=== PATIENT | male | born 1935 | race Caucasian/White ===

== ENCOUNTER 2017-06-11 19:28 | Inpatient (IN) | payer MEDICARE, OTHER ==
[2017-06-11 20:18] LABS: Basophils % (A) 0 %; Eosinophils # (A) 0.1 k/uL (0-0.7); Eosinophils % (A) 1 %; HCT 54.4 % (39.0-53.0); HGB 17.2 gm/dL (13.0-17.5); Hypochromasia Slight; Lymphocytes # (A) 0.5 k/uL (1.0-4.8); Lymphocytes % (A) 7 %; MCH 29.2 pg (25.0-35.0); MCHC 31.7 g/dL (31.0-37.0); MCV 92.1 fL (80.0-100.0); Mean Platelet Volume 8.5; Monocytes # (A) 0.4 k/uL (0-1.0); Monocytes % (A) 6 %; Neutrophils # (A) 5.3 k/uL (1.3-7.7); Neutrophils % (A) 84 %; Platelet Count 118 k/uL (150-450); RDW 15.1 % (11.5-15.5); WBC 6.3 k/uL (3.8-10.6)
[2017-06-11 20:28] LABS: Albumin 3.3 g/dL (3.5-5.0); Calcium 8.6 mg/dL (8.4-10.2); Magnesium 2.7 mg/dL (1.6-2.3); Potassium 5.1 mmol/L (3.5-5.1); Total Bilirubin 1.3 mg/dL (0.2-1.3); Total Protein 5.6 g/dL (6.3-8.2)
[2017-06-11 20:32] LABS: INR 1.6 (<1.2); Partial Thromboplastin Time 28.2 sec (22.0-30.0)
--- NOTE | 2017-06-11 20:35 | XR ---
EXAMINATION TYPE: XR chest 1V portable DATE OF EXAM: 06/11/2017 COMPARISON: NONE HISTORY: Short of breath TECHNIQUE: Single frontal view of the chest is obtained. FINDINGS: There is coarsening of interstitial pulmonary markings. Heart size is normal. Thoracic aor ta is atheromatous. There are chest leads. There is slight blunting of right costophrenic angle. IMPRESSION: Small right pleural effusion. Coarse lung markings are nonspecific and could relate to f ibrosis or acute interstitial pneumonia. Mild heart failure is possible.
[2017-06-11 20:41] LABS: Appearance,Urine Clear (Clear); Bilirubin,Urine Negative (Negative); Blood,Urine Negative (Negative); Color,Urine Yellow; Glucose,Urine (UA) Negative (Negative); Ketones,Urine 1+ (Negative); Leukocyte Esterase,Urine Negative (Negative); Nitrite,Urine Negative (Negative); PH, Urine 5.5 (5.0-8.0); Protein,Urine Trace (Negative); Specific Gravity,Urine 1.016 (1.001-1.035); Urobilinogen,Urine <2.0 mg/dL (<2.0)
--- NOTE | 2017-06-11 20:57 | ED ---
Altered Mental Status HPI - General Chief Complaint: Altered Mental Status Stated Complaint: failure to thrive Time Seen by Provider: 06/11/17 19:32 Source: EMS Mode of arrival: EMS Limitations: altered mental status - History of Present Illness Initial Comments: Patient is an 82-year-old man brought by EMS to be evaluate for altered mental status. It is reported that the patient was last seen on June 06 and then when he was checked today he was found lying on the floor in clothing soiled. The patient is not able to provide much in way of history. MD Complaint: altered mental status -: unknown Severity: severe Consistency of Symptoms: unknown Context: COPD - Related Data Home Medications Medication Instructions Recorded Confirmed Unable To Assess [Unable to Assess] 06/11/17 06/11/17 Allergies Allergy/AdvReac Type Severity Reaction Status Date / Time No Known Allergies Allergy Verified 06/11/17 20:23 Review of Systems ROS Statement: Those systems with pertinent positive or pertinent negative responses have been documented in the HPI. ROS Other: All systems not noted in ROS Statement are negative. Limitations: ROS unobtainable due to patients medical condition Cardiovascular: Denies: chest pain Neurological: Denies: headache Past Medical History Past Medical History: Unable to Obtain, COPD Additional Past Medical History / Comment(s): Pt poor historian at this time. History of Any Multi-Drug Resistant Organisms: None Reported Past Surgical History: Unable to Obtain Additional Past Surgical History / Comment(s): Pt poor historian at this time. Past Psychological History: No Psychological Hx Reported Smoking Status: Current every day smoker Past Alcohol Use History: None Reported Past Drug Use History: None Reported General Exam Limitations: altered mental status General appearance: alert, cachectic Head exam: Present: atraumatic, normocephalic Eye exam: Present: normal appearance. Absent: scleral icterus, conjunctival injection ENT exam: Present: mucous membranes dry Neck exam: Present: full ROM. Absent: tenderness Respiratory exam: Present: wheezes. Absent: respiratory distress, rales, rhonchi, stridor Cardiovascular Exam: Present: regular rate, normal rhythm, normal heart sounds. Absent: systolic murmur, diastolic murmur, rubs, gallop GI/Abdominal exam: Present: soft. Absent: tenderness, guarding Extremities exam: Present: normal capillary refill, pedal edema (Mild bilateral ankle edema). Absent: calf tenderness Back exam: Absent: CVA tenderness (R), CVA tenderness (L) Neurological exam: Present: altered, CN II-XII intact, other (Patient GCS 14. Somnolent but arousable. Able to only follow single step commands. Oriented to person). Absent: oriented X3, motor sensory deficit Skin exam: Present: warm, dry, other (Multiple excoriations) Course Vital Signs 06/11/17 06/11/17 06/11/17 20:10 21:39 23:05 Temperature 97.6 F Pulse Rate 98 81 91 Respiratory 18 18 18 Rate Blood Pressure 125/60 118/68 112/66 O2 Sat by Pulse 96 95 96 Oximetry 06/11/17 23:27 Temperature 97.2 F L Pulse Rate Respiratory Rate Blood Pressure O2 Sat by Pulse Oximetry Medical Decision Making - Medical Decision Making Patient is a 82-year-old man brought to emergency department after being found on the floor at his residence. The patient does appear to be extremely dehydrated and will be admitted for further hydration as well as - Lab Data Result diagrams: 06/12/17 01:58 06/12/17 01:58 Lab Results 06/11/17 06/11/17 06/11/17 Range/Units 20:07 20:07 20:07 WBC 6.3 (3.8-10.6) k/uL RBC 5.90 (4.30-5.90) m/uL Hgb 17.2 (13.0-17.5) gm/dL Hct 54.4 H (39.0-53.0) % MCV 92.1 (80.0-100.0) fL MCH 29.2 (25.0-35.0) pg MCHC 31.7 (31.0-37.0) g/dL RDW 15.1 (11.5-15.5) % Plt Count 118 L (150-450) k/uL Neutrophils % 84 % Lymphocytes % 7 % Monocytes % 6 % Eosinophils % 1 % Basophils % 0 % Neutrophils # 5.3 (1.3-7.7) k/uL Lymphocytes # 0.5 L (1.0-4.8) k/uL Monocytes # 0.4 (0-1.0) k/uL Eosinophils # 0.1 (0-0.7) k/uL Basophils # 0.0 (0-0.2) k/uL Hypochromasia Slight PT (9.0-12.0) sec INR (<1.2) APTT (22.0-30.0) sec Sodium 153 H (137-145) mmol/L Potassium 5.1 (3.5-5.1) mmol/L Chloride 113 H (98-107) mmol/L Carbon Dioxide 24 (22-30) mmol/L Anion Gap 16 mmol/L BUN 83 H* (9-20) mg/dL Creatinine 1.40 H (0.66-1.25) mg/dL Est GFR (CKD-EPI)AfAm 53 (>60 ml/min/1.73 sqM) Est GFR (CKD-EPI)NonAf 46 (>60 ml/min/1.73 sqM) Glucose 77 (74-99) mg/dL Plasma Lactic Acid Tomas 1.2 (0.7-2.0) mmol/L Calcium 8.6 (8.4-10.2) mg/dL Magnesium 2.7 H (1.6-2.3) mg/dL Total Bilirubin 1.3 (0.2-1.3) mg/dL AST 71 H (17-59) U/L ALT 54 (21-72) U/L Alkaline Phosphatase 53 (38-126) U/L Troponin I (0.000-0.034) ng/mL Total Protein 5.6 L (6.3-8.2) g/dL Albumin 3.3 L (3.5-5.0) g/dL Urine Color Urine Appearance (Clear) Urine pH (5.0-8.0) Ur Specific [place] (1.001-1.035) Urine Protein (Negative) Urine Glucose (UA) (Negative) Urine Ketones (Negative) Urine Blood (Negative) Urine Nitrite (Negative) Urine Bilirubin (Negative) Urine Urobilinogen (<2.0) mg/dL Ur Leukocyte Esterase (Negative) 06/11/17 06/11/17 06/11/17 Range/Units 20:07 20:07 20:30 WBC (3.8-10.6) k/uL RBC (4.30-5.90) m/uL Hgb (13.0-17.5) gm/dL Hct (39.0-53.0) % MCV (80.0-100.0) fL MCH (25.0-35.0) pg MCHC (31.0-37.0) g/dL RDW (11.5-15.5) % Plt Count (150-450) k/uL Neutrophils % % Lymphocytes % % Monocytes % % Eosinophils % % Basophils % % Neutrophils # (1.3-7.7) k/uL Lymphocytes # (1.0-4.8) k/uL Monocytes # (0-1.0) k/uL Eosinophils # (0-0.7) k/uL Basophils # (0-0.2) k/uL Hypochromasia PT 15.0 H (9.0-12.0) sec INR 1.6 H (<1.2) APTT 28.2 (22.0-30.0) sec Sodium (137-145) mmol/L Potassium (3.5-5.1) mmol/L Chloride (98-107) mmol/L Carbon Dioxide (22-30) mmol/L Anion Gap mmol/L BUN (9-20) mg/dL Creatinine (0.66-1.25) mg/dL Est GFR (CKD-EPI)AfAm (>60 ml/min/1.73 sqM) Est GFR (CKD-EPI)NonAf (>60 ml/min/1.73 sqM) Glucose (74-99) mg/dL Plasma Lactic Acid Tomas (0.7-2.0) mmol/L Calcium (8.4-10.2) mg/dL Magnesium (1.6-2.3) mg/dL Total Bilirubin (0.2-1.3) mg/dL AST (17-59) U/L ALT (21-72) U/L Alkaline Phosphatase (38-126) U/L Troponin I 0.159 H* (0.000-0.034) ng/mL Total Protein (6.3-8.2) g/dL Albumin (3.5-5.0) g/dL Urine Color Yellow Urine Appearance Clear (Clear) Urine pH 5.5 (5.0-8.0) Ur Specific [place] 1.016 (1.001-1.035) Urine Protein Trace H (Negative) Urine Glucose (UA) Negative (Negative) Urine Ketones 1+ H (Negative) Urine Blood Negative (Negative) Urine Nitrite Negative (Negative) Urine Bilirubin Negative (Negative) Urine Urobilinogen <2.0 (<2.0) mg/dL Ur Leukocyte Esterase Negative (Negative) - EKG Data -: EKG Interpreted by Me EKG shows normal: sinus rhythm (Rate approximately 98 bpm), axis (Normal), intervals (Normal), QRS complexes (Low-voltage QRS complexes), ST-T waves ( Normal) Rate: normal 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
--- NOTE | 2017-06-11 21:44 | CT ---
EXAMINATION TYPE: CT brain wo con DATE OF EXAM: 06/11/2017 COMPARISON: NONE HISTORY: Weakness CT DLP: 738.2 mGycm Automated exposure control for dose reduction was used. FINDINGS: There is mild cerebral cortical atrophy. There is no mass effect nor midline shift. There is no sign of intracranial hemorrhage. The calvarium appears intact. IMPRESSION: CEREBRAL ATROPHY. NO ACUTE INTRACRANIAL ABNORMALITY. MINIMAL CHRONIC SMALL VESSEL ISCHEMIA.
[2017-06-11] MEDS ORDERED: SODIUM CHLORIDE 0.9% 500 ML IV STA (21:51)
[2017-06-11] MEDS ORDERED: ACETAMINOPHEN TAB 325 MG TAB PO PRN (23:14)
[2017-06-11] MEDS ORDERED: NALOXONE 0.4 MG/ML 1 ML VIAL IV PRN (23:14)
[2017-06-11] MEDS ORDERED: SODIUM CHLORIDE 0.9% 1,000 ML IV SCH (23:15)
[2017-06-12 00:18] LABS: VBG PH 7.2 (7.31-7.41)
[2017-06-12 01:19] LABS: ABG Base Excess -1.2 mmol/L; ABG HCO3 27 mmol/L (21-25); ABG Oxygen Saturation 95.9 % (94-97); ABG PO2 94 mmHg (83-108); ABG TCO2 29 mmol/L (19-24)
[2017-06-12 01:51] LABS: Glucose,Whole Blood 78 mg/dL (75-99)
[2017-06-12 01:51] LABS: ABG PCO2 70 mmHg (35-45)
[2017-06-12 02:04] VITALS: TEMP 97.1
[2017-06-12 02:14] LABS: Basophils % (A) 0 %; Eosinophils % (A) 1 %; HCT 53.6 % (39.0-53.0); HGB 16.2 gm/dL (13.0-17.5); Hypochromasia Moderate; Lymphocytes # (A) 0.5 k/uL (1.0-4.8); Lymphocytes % (A) 9 %; MCH 28.3 pg (25.0-35.0); MCHC 30.2 g/dL (31.0-37.0); MCV 93.9 fL (80.0-100.0); Mean Platelet Volume 8.5; Monocytes # (A) 0.3 k/uL (0-1.0); Monocytes % (A) 7 %; Neutrophils % (A) 81 %; Platelet Count 101 k/uL (150-450); RBC 5.72 m/uL (4.30-5.90); WBC 4.9 k/uL (3.8-10.6)
[2017-06-12 02:21] LABS: Albumin 3.1 g/dL (3.5-5.0); Calcium 8.3 mg/dL (8.4-10.2); Magnesium 2.7 mg/dL (1.6-2.3); Phosphorus 5.7 mg/dL (2.5-4.5); Potassium 5.2 mmol/L (3.5-5.1); Total Protein 5.5 g/dL (6.3-8.2)
[2017-06-12 02:50] LABS: Creatine Kinase MB 6.2 ng/mL (0.0-2.4)
[2017-06-12 02:53] LABS: Troponin I 0.187 ng/mL (0.000-0.034)
[2017-06-12 03:17] LABS: ABG PH 7.05 (7.35-7.45)
[2017-06-12] MEDS ORDERED: ARTIFICIAL TEARS-HYPROMELLOSE DROPS 15 ML BTL BOTH EYES PRN (03:17)
[2017-06-12] MEDS ORDERED: LORazepam 2 MG/ML INJ IV PRN (03:17)
[2017-06-12] MEDS ORDERED: MORPHINE SULF 5MG/10ML VL IV PRN (03:17)
[2017-06-12 03:18] LABS: ABG Base Excess 0.2 mmol/L; ABG HCO3 31 mmol/L (21-25); ABG PCO2 111 mmHg (35-45); ABG PO2 73 mmHg (83-108); ABG TCO2 34 mmol/L (19-24)
[2017-06-12] MEDS ORDERED: SCOPOLAMINE 1.5MG/72HR PATCH TRANSDERM STA (03:22)
[2017-06-12] MEDS ORDERED: MORPHINE SULF 5MG/10ML VL ONE (03:26)
[2017-06-12] MEDS ORDERED: MORPHINE SULFATE (100 MG/2 ML) 100 MG in SODIUM CHLORIDE 0.9% 100 ML IV SCH (03:30)
[2017-06-12 06:36] VITALS: BP 94/52; RESP 4
[2017-06-12 07:07] VITALS: PULSE 54
--- NOTE | 2017-06-12 15:34 | P.HPIM ---
History of Present Illness H&P Date: 06/12/17 Chief Complaint: Altered mental status and found on the floor Patient is a 82 her male was brought to the hospital by EMS due to altered mental status and was found on the floor. Patient was last seen on June 06 and was checked on 06/11/2017, found lying on the floor in clothing soiled. Patient could not provide any history while in the ER. Due to his acute medical conditions and elevated troponin and respiratory failure, cord status has been changed to comfort measures and patient was transferred to hospice care. Past Medical History Past Medical History: Unable to Obtain, COPD Additional Past Medical History / Comment(s): Pt poor historian at this time. History of Any Multi-Drug Resistant Organisms: None Reported Past Surgical History: Unable to Obtain Additional Past Surgical History / Comment(s): Pt valerie historian at this time. Past Psychological History: No Psychological Hx Reported Smoking Status: Current every day smoker Past Alcohol Use History: None Reported Past Drug Use History: None Reported Medications and Allergies Home Medications Medication Instructions Recorded Confirmed Type Unable To Assess [Unable to Assess] 06/11/17 06/11/17 History Allergies Allergy/AdvReac Type Severity Reaction Status Date / Time No Known Allergies Allergy Verified 06/11/17 20:23 Physical Exam Vitals: Vital Signs Temp Pulse Pulse Resp BP BP Pulse Ox 06/12/17 07:00 54 L 4 L 44 L 06/12/17 06:00 85 4 L 94/52 98 06/12/17 05:00 75 10 L 86/49 99 06/12/17 04:00 81 10 L 70/44 99 06/12/17 03:30 102 H 28 H 99 06/12/17 03:00 102 H 31 H 109/61 99 06/12/17 02:30 105 H 28 H 99 06/12/17 02:10 92 24 98 06/12/17 02:03 97.1 F L 93 23 111/63 88 L 06/12/17 02:00 97.7 F 93 21 112/67 96 06/12/17 01:50 96 23 92 L 06/12/17 01:48 95 06/11/17 23:27 97.2 F L 06/11/17 23:05 91 18 112/66 96 06/11/17 21:39 81 18 118/68 95 06/11/17 20:10 97.6 F 98 18 125/60 96 Intake and Output 06/11/17 06/12/17 06/12/17 22:59 06:59 14:59 Intake Total 160 20 Output Total 780 0 Balance -620 20 Intake: IV 160 20 Sodium Chloride 0.9% 1, 160 20 000 ml @ 20 mls/hr IV . Q24H [facility] Rx#:[id number] Output: Urine 780 0 Other: Voiding Method Indwelling Catheter Weight 52.163 kg Results CBC & Chem 7: 06/12/17 01:58 06/12/17 01:58 Labs: Abnormal Lab Results - Last 24 Hours (Table) 06/11/17 06/11/17 06/11/17 Range/Units 20:07 20:07 20:07 Hct 54.4 H (39.0-53.0) % MCHC (31.0-37.0) g/dL Plt Count 118 L (150-450) k/uL Lymphocytes # 0.5 L (1.0-4.8) k/uL PT 15.0 H (9.0-12.0) sec INR 1.6 H (<1.2) ABG pH (7.35-7.45) ABG pCO2 (35-45) mmHg ABG pO2 (83-108) mmHg ABG HCO3 (21-25) mmol/L ABG Total CO2 (19-24) mmol/L ABG O2 Saturation (94-97) % VBG pH (7.31-7.41) VBG pCO2 (37-51) mmHg Sodium 153 H (137-145) mmol/L Potassium (3.5-5.1) mmol/L Chloride 113 H (98-107) mmol/L BUN 83 H* (9-20) mg/dL Creatinine 1.40 H (0.66-1.25) mg/dL Plasma Lactic Acid Tomas (0.7-2.0) mmol/L Calcium (8.4-10.2) mg/dL Phosphorus (2.5-4.5) mg/dL Magnesium 2.7 H (1.6-2.3) mg/dL AST 71 H (17-59) U/L CK-MB (CK-2) (0.0-2.4) ng/mL Troponin I (0.000-0.034) ng/mL Total Protein 5.6 L (6.3-8.2) g/dL Albumin 3.3 L (3.5-5.0) g/dL Urine Protein (Negative) Urine Ketones (Negative) 06/11/17 06/11/17 06/12/17 Range/Units 20:07 20:30 00:00 Hct (39.0-53.0) % MCHC (31.0-37.0) g/dL Plt Count (150-450) k/uL Lymphocytes # (1.0-4.8) k/uL PT (9.0-12.0) sec INR (<1.2) ABG pH (7.35-7.45) ABG pCO2 (35-45) mmHg ABG pO2 (83-108) mmHg ABG HCO3 (21-25) mmol/L ABG Total CO2 (19-24) mmol/L ABG O2 Saturation (94-97) % VBG pH 7.20 L* (7.31-7.41) VBG pCO2 69 H (37-51) mmHg Sodium (137-145) mmol/L Potassium (3.5-5.1) mmol/L Chloride (98-107) mmol/L BUN (9-20) mg/dL Creatinine (0.66-1.25) mg/dL Plasma Lactic Acid Tomas (0.7-2.0) mmol/L Calcium (8.4-10.2) mg/dL Phosphorus (2.5-4.5) mg/dL Magnesium (1.6-2.3) mg/dL AST (17-59) U/L CK-MB (CK-2) (0.0-2.4) ng/mL Troponin I 0.159 H* (0.000-0.034) ng/mL Total Protein (6.3-8.2) g/dL Albumin (3.5-5.0) g/dL Urine Protein Trace H (Negative) Urine Ketones 1+ H (Negative) 06/12/17 06/12/17 06/12/17 Range/Units 01:17 01:58 01:58 Hct 53.6 H (39.0-53.0) % MCHC 30.2 L (31.0-37.0) g/dL Plt Count 101 L (150-450) k/uL Lymphocytes # 0.5 L (1.0-4.8) k/uL PT (9.0-12.0) sec INR (<1.2) ABG pH 7.20 L* (7.35-7.45) ABG pCO2 70 H* (35-45) mmHg ABG pO2 (83-108) mmHg ABG HCO3 27 H (21-25) mmol/L ABG Total CO2 29 H (19-24) mmol/L ABG O2 Saturation (94-97) % VBG pH (7.31-7.41) VBG pCO2 (37-51) mmHg Sodium (137-145) mmol/L Potassium (3.5-5.1) mmol/L Chloride (98-107) mmol/L BUN (9-20) mg/dL Creatinine (0.66-1.25) mg/dL Plasma Lactic Acid Tomas (0.7-2.0) mmol/L Calcium (8.4-10.2) mg/dL Phosphorus (2.5-4.5) mg/dL Magnesium (1.6-2.3) mg/dL AST (17-59) U/L CK-MB (CK-2) 6.2 H* (0.0-2.4) ng/mL Troponin I 0.187 H* (0.000-0.034) ng/mL Total Protein (6.3-8.2) g/dL Albumin (3.5-5.0) g/dL Urine Protein (Negative) Urine Ketones (Negative) 06/12/17 06/12/17 06/12/17 Range/Units 01:58 01:58 03:01 Hct (39.0-53.0) % MCHC (31.0-37.0) g/dL Plt Count (150-450) k/uL Lymphocytes # (1.0-4.8) k/uL PT (9.0-12.0) sec INR (<1.2) ABG pH 7.05 L* (7.35-7.45) ABG pCO2 111 H* (35-45) mmHg ABG pO2 73 L (83-108) mmHg ABG HCO3 31 H (21-25) mmol/L ABG Total CO2 34 H (19-24) mmol/L ABG O2 Saturation 87.0 L (94-97) % VBG pH (7.31-7.41) VBG pCO2 (37-51) mmHg Sodium 155 H (137-145) mmol/L Potassium 5.2 H (3.5-5.1) mmol/L Chloride 114 H (98-107) mmol/L BUN 80 H* (9-20) mg/dL Creatinine 1.30 H (0.66-1.25) mg/dL Plasma Lactic Acid Tomas 0.6 L (0.7-2.0) mmol/L Calcium 8.3 L (8.4-10.2) mg/dL Phosphorus 5.7 H (2.5-4.5) mg/dL Magnesium 2.7 H (1.6-2.3) mg/dL AST 72 H (17-59) U/L CK-MB (CK-2) (0.0-2.4) ng/mL Troponin I (0.000-0.034) ng/mL Total Protein 5.5 L (6.3-8.2) g/dL Albumin 3.1 L (3.5-5.0) g/dL Urine Protein (Negative) Urine Ketones (Negative)
--- NOTE | 2017-06-12 15:38 | P.DS ---
Providers Date of admission: 06/11/17 23:15 Expected date of discharge: 06/12/17 Attending physician: Trino Rm Consults: 06/12/17 00:54 Consult Physician Routine Consulting Provider: Alex Lujan Consult Reason/Comments: abg Do you want consulting provider notified?: Yes 06/12/17 00:56 Consult Physician Routine Consulting Provider: Man Herrera Consult Reason/Comments: elevated trop Do you want consulting provider notified?: Yes Primary care physician: Physician Nonstaff Hospital Course: Patient was transferred to MICU due to acute respiratory failure requiring BiPAP. Due to his overall poor prognosis, hospice care has been consulted.. Patient at 7:45 AM on 06/12/2017. Patient Condition at Discharge: Poor Plan - Discharge Summary New Discharge Prescriptions: No Action Unable To Assess [Unable to Assess] Discharge Medication List Unable To Assess [Unable to Assess] 06/11/17 [History] Follow up Appointment(s)/Referral(s): Nonstaff,Physician [Primary Care Provider] - 1-2 days Discharge Disposition: - Preliminary Cause of Preliminary Cause of : Acute hypoxic respiratory failure and metabolic encephalopathy
--- NOTE | 2017-07-06 15:48 | CDI ---
Dr. Trino Rm Clarification is sought regarding the clinical significance, if any, of documentation of elevated troponin with Troponin level of 0.159 and 0.187 Documentation states:82 yo male brought in by EMS for AMS found on floor last seen June 06 and found 06/11/2017 in soiled clothing. Due to his acute medical conditions and elevated troponin and respiratory failure his code status has been changed to comfort measure and patient was transferred to hospice care. Ds notes preliminary cause of acute hypoxic respiratory failure and metabolic encephalopathy. History/Risk Factors: COPD, Failure to thrive, severe dehydration, Clinical indicators: Elevated Troponin, Acute metabolic Encephalopathy, Respiratory failure. Elevated troponin 0.159 and 0.187 Treatment: Code status change, comfort measures, supplemental O2,MS, IVF bolus Clinical significance of diagnostic testing and treatment CANNOT be assumed or coded without physician documentation of significance if any. Please clarify what elevated troponin means Abnormal Lab Value not clinically significant Acute NH NSTEMI TYPE II NH Unable to determine Other, please specify Please continue to document in your progress notes and discharge summary in order to capture severity of illness and risk of mortality. Include clinical findings that support your diagnosis. TYPE II NH MTDD
--- NOTE | 2017-07-06 16:08 | CDI ---
Documentation Clarification Form Date: 07/06/2017 From: Sylwia MUNOZ,CCDS,RN Admit Date: 06/11/2017 11:15:00 PM Patient Name: Alin Burnett Visit Number: [id number] Discharge Date:06/12/2017 ATTENTION: The Clinical Documentation Specialists (CDI) and [facility] Coding Staff appreciate your assistance in clarifying documentation. Please respond to the clarification below the line at the bottom and electronically sign. The CDI & [facility] Coding staff will review the response and follow-up if needed. Please note: Queries are made part of the Legal Health Record. If you have any questions, please contact the author of this message via ITS. Documentation states:82 yo male brought in by EMS for AMS found on floor last seen June 06 and found 06/11/2017 in soiled clothing. Due to his acute medical conditions and elevated troponin and respiratory failure his code status has been changed to comfort measure and patient was transferred to hospice care. Ds notes preliminary cause of acute hypoxic respiratory failure and metabolic encephalopathy. History/Risk Factors: COPD, Failure to thrive, severe dehydration, Clinical indicators:, Acute metabolic Encephalopathy, Respiratory failure. Severe dehydration, described as cachectic, NA 155 and 153 Treatment: Code status change, MS, IVF bolus Clinical significance of diagnostic testing and treatment CANNOT be assumed or coded without physician documentation of significance if any. Please render your opinion on the findings of Serum NA 153 Abnormal Lab Value not clinically significant Hypernatremia Unable to determine Other, please specify Please continue to document in your progress notes and discharge summary in order to capture severity of illness and risk of mortality. Include clinical findings that support your diagnosis. Hypernatremia due to dehydration MTDD
--- NOTE | 2017-07-06 16:34 | CDI ---
Last Revision, February 2017 Documentation Clarification Form Date: 07/06/2017 12:00:00 AM From: Sylwia Quijano Admit Date: 06/11/2017 11:15:00 PM Patient Name: Alin Burnett Visit Number: [id number] Discharge Date:06/12/2017 ATTENTION: The Clinical Documentation Specialists (CDI) and [facility] Coding Staff appreciate your assistance in clarifying documentation. Please respond to the clarification below the line at the bottom and electronically sign. The CDI & [facility] Coding staff will review the response and follow-up if needed. Please note: Queries are made part of the Legal Health Record. If you have any questions, please contact the author of this message via ITS. Dr. Trino Rm Clarification is sought regarding patients nutritional status and any clinical significance, if any. Documentation states:82 yo male brought in by EMS for AMS found on floor last seen June 06 and found 06/11/2017 in soiled clothing. Due to his acute medical conditions and elevated troponin and respiratory failure his code status has been changed to comfort measure and patient was transferred to hospice care. Ds notes preliminary cause of acute hypoxic respiratory failure and metabolic encephalopathy. History/Risk Factors: COPD, Failure to thrive, severe dehydration, nurses note abdomen sunken Clinical indicators: Acute metabolic Encephalopathy, Respiratory failure. Severe dehydration, described as cachectic, NA 155 and 153 Treatment: Code status change, MS, IVF bolus. In your professional opinion, can you please clarify if these findings signify one of the following conditions? Mild Protein-Calorie Malnutrition Moderate Protein-Calorie Malnutrition Severe Protein-Calorie Malnutrition Malnutrition, Unspecified Other condition, please specify Unable to determine Please continue to document in your progress notes and discharge summary in order to capture severity of illness and risk of mortality. Include clinical findings that support your diagnosis. Moderate Protein-Calorie Malnutrition MTDD
== END 2017-06-12 07:15 | disposition expired | DRG 189 ==
LOC: EC 19:28 → 6SEL 23:15 → 6ICU 06-12 01:34
PROVIDERS: ADMIT Internal Medicine; ATTEND Internal Medicine
PROC: 5A09357 Assistance with Respiratory Ventilation, Less than 24 Consecutive Hours, Continuous Positive Airway Pressure (ICD-10-PCS; principal; 2017-06-11)
DX: J96.01 Acute respiratory failure with hypoxia (principal); G93.41 Metabolic encephalopathy; I21.A1 Myocardial infarction type 2; E44.0 Moderate protein-calorie malnutrition; R64 Cachexia; E87.0 Hyperosmolality and hypernatremia; Z68.1 Body mass index [BMI] 19.9 or less, adult; E86.0 Dehydration; J44.9 Chronic obstructive pulmonary disease, unspecified; Z51.5 Encounter for palliative care; Z66 Do not resuscitate; F17.200 Nicotine dependence, unspecified, uncomplicated; R62.7 Adult failure to thrive; R77.8 Other specified abnormalities of plasma proteins
CPT/HCPCS: 36415; 36600; 70450; 71045; 80053; 81003; 82553; 82803; 82805; 83605; 83735; 83880; 84100; 84484; 85025; 85610; 85730; 93005; 94660; 96360; 99285